=== PATIENT | male | born 1930 | race Caucasian/White ===

== ENCOUNTER 2017-05-02 07:00 | Day surgery (SDC) | payer OTHER ==
[~2017-05-02] VITALS: Ht 172.7 cm; Wt 82.1 kg
--- NOTE | ~2017-05-02 | EKG ---
[place] [address] [email or web address] [place] [address] ELECTROCARDIOGRAM REPORT Name: RANDY MESA Room #: [facility]#: [id number] Admission: 05/02/17 Attend Phys: Girish Sterling MD, F Discharge: 05/02/17 Date of : [birth year] Report #: [id number] THIS REPORT FOR: //name// [facility] Test Date: 2017-05-02 Test Time: 10:17:07 Pat Name: RANDY MOSHE Department: Room: 150 7 Gender: M [employer] Plant Operator: YOESLIN : 1930 Requested By: Girish Sterling Order Number: [id number] MD: Dallin Hall Measurements Intervals [place] Rate: 98 P: [place]: QRS: -58 QRSD: 126 T: 133 QT: 420 QTc: 537 Interpretive Statements Atrial fibrillation Multiple ventricular premature complexes Right bundle branch block Anterior infarct, old Abnormal T, consider ischemia, lateral leads No previous ECG available for comparison Electronically Signed On 05-02-2017 21:58:46 CDT by Dallin Hall [email or web address] <ELECTRONICALLY SIGNED> By: Dallin Hall MD 05/02/17 [id number] Dallin Hall MD /EPI
--- NOTE | ~2017-05-02 | O ---
[facility] [place] [address] OPERATIVE REPORT Name: MOSHE,RANDY Alicia Room #: [facility]#: [id number] Admission: 05/02/17 Attend Phys: Girish Sterling MD, F Discharge: 05/02/17 Date of : [birth year] Report #: [id number] THIS REPORT FOR: //name// CC: Mesha Sterling DATE OF SERVICE: 05/02/2017 DATE OF OPERATION: 05/02/2017 SURGEON: Girish Sterling MD WET PRESS TENDER: None. PREOPERATIVE DIAGNOSES: 1. Urethral meatus wound. 2. Calciphylaxis. 3. 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 4. Nutrition. POSTOPERATIVE DIAGNOSES: 1. Urethral meatus wound. 2. Calciphylaxis. 3. 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 4. Nutrition. PROCEDURE: 1. Removal of peritoneal dialysis catheter. 2. Esophagogastroduodenoscopy with percutaneous endoscopic gastrostomy tube placement (20-Norwegian pull-type). ANESTHESIA: Monitored anesthetic care and local anesthetic. ESTIMATED BLOOD LOSS: 5 mL. SPECIMEN: None. COMPLICATIONS: None appreciated. INDICATIONS FOR PROCEDURE: This is an 87-year-old male patient with a history of end-stage renal disease who has difficulty with calciphylaxis. He developed a wound at the urethral meatus after a Miranda catheter had been in place for quite some time. The patient was to undergo peritoneal dialysis; however, he is now undergoing hemodialysis, although he does make urine. Due to his poor p.o. [facility] [address] [place] [address] OPERATIVE REPORT Name: RANDY MESA Room #: [facility] [employer].#: [id number] Admission: 05/02/17 Attend Phys: Girish Sterling MD, F Discharge: 05/02/17 Date of : [birth year] Report #: [id number] intake and malnutrition, he was having a difficult time healing his wounds, especially with his history of calciphylaxis. The patient presents today for removal of this is no longer needed peritoneal dialysis catheter as well as percutaneous endoscopic gastrostomy placement. He was to undergo suprapubic catheter placement by urology; however, they are unavailable at this time and the patient will undergo placement of his suprapubic catheter by Interventional Radiology during this hospital visit. DESCRIPTION OF PROCEDURE IN DETAIL: After the benefits and risks of the procedure were explained to the patient and his family, which include but are not limited to risks of bleeding, infection, postoperative pain, postoperative expectations for both procedures, informed consent was obtained. The patient was identified in preoperative holding area. He was given IV antibiotics as documented in the chart in line with the SCIP protocol. The patient was then taken to the operating room and he was placed in the supine position. SCDs were placed on the patient's bilateral lower extremities and pneumatic compression was initiated. The patient was then given IV sedation. He received monitored anesthetic care. When adequately sedated, the patient's abdomen was prepped and draped in the standard sterile fashion. A time-out was performed to identify the correct patient and procedure. Removal of peritoneal dialysis catheter was undertaken first. Local anesthetic was infiltrated into the skin and subcutaneous tissue along the tract surrounding the peritoneal dialysis catheter located in the left lower quadrant of the abdomen. The scar used for placement of the catheter intraabdominally, was also infiltrated with local anesthetic. I initially attempted to spread alongside the catheter starting at its exit point from the skin. With gentle traction on the catheter, the cuff could be palpated, but was not able to reach. A sharp #15 blade scalpel was then used to make an incision through the old scar. Dissection was carried down to the catheter. The catheter was bluntly and sharply dissected free. The inner cuff at the fascial level was then dissected free with appropriate traction and electrocautery. The catheter was then freed from the surrounding tissue and removed without difficulty. A [id number] PDS sutures were then placed to close the fascial defect. Interrupted 3-0 Vicryl sutures were used to approximate the subdermal tissue and a running 4-0 absorbable Stratafix suture was used to close the skin incision. The tube exit site was also debrided and closed with a running 4-0 Monocryl subcuticular suture. Dermabond was applied to each suture line. OPERATIVE FINDINGS: EGD with PEG tube placement was undertaken next. A bite block was placed by Anesthesia. The gastroscope was inserted into the patient's oropharynx and passed down the esophagus into the stomach and beyond the pylorus to the third portion of the duodenum. The scope was then slowly withdrawn. An appropriate area was chosen for placement of the PEG tube. There was good ballotability and transillumination in this area located in the left subxiphoid area. Local anesthetic was infiltrated into the skin and subcutaneous tissue. [facility] [address] [place] [address] OPERATIVE REPORT Name: RANDY MESA [id number] Admission: 05/02/17 Attend Phys: Girish Sterling MD, F Discharge: 05/02/17 Date of : [birth year] Report #: [id number] A small transverse incision was made and the Angiocatheter was advanced into the stomach under direct visualization. The needle was removed and looped typed guidewire was advanced through the catheter. The guidewire was snared with the scope and the scope and guidewire were withdrawn through the oropharynx. The pull type 20-Norwegian feeding tube was then attached to the guidewire. From the abdominal side, gentle traction was applied to the guidewire to advance the PEG tube down the patient's esophagus and into the stomach. The tube was marked at 3.5 cm at the skin level. The outer flange was placed. The tube was cut to size. A clamp and fitting were then placed. The scope was readvanced into the patient's stomach and the PEG tube appeared to be well seated. The stomach was decompressed and the scope was slowly withdrawn. The patient tolerated the procedure well. He was awakened and was taken to the recovery room in stable condition. He will undergo suprapubic catheter placement by Interventional Radiology soon. <ELECTRONICALLY SIGNED> By: Girish Sterling MD, FACS 05/03/17 0811 [id number] Girish Sterling MD, FACS /nt
[~2017-05-02 07:00] MED LIST: ACCUNEB SO1.25 MG/1 INH; ALLOPURINOL 10100 M1 PO; ARANESP 6060 MCG/0.3 SUBQ; ATIVAN0.5 MG PO; ATORVASTATIN CA40 MG PO; B-COMPLEX PLUS1 EACH PO; COLACE100 MG PO; COREG3.125 MG PO; CYPROHEPTADINE 44 MG PO; ELIQUIS2.5 MG PER TUBE; ENSURE HIGH PR237 ML PO; FENTANYL PA25 MCG/HR TRANSDERM; GLIMEPIRIDE4 MG PO; HALOPERIDOL5 MG/1 M1 IV PUSH; HEPARIN SO5000 UNIT2 IV PUSH; LANTISEPTIC OI113 GM TOP; LEVEMIR100 UNIT/1 SUBQ; METOCLOPRAM5 MG/1 M2 IV PUSH; MIRALAX17 GM PO; NOVOLOG100 UNIT/1 SUBQ; ONDANSETRON4 MG/2 ML IV PUSH; PANTOPRAZOLE SO40 M1 PO; PROTEIN POWDER454 GM PO; RENVELA800 MG PO; SILVADENE20 GM TOP; SODIUM THI12.5 GM/50 IV; TRAMADOL HCL50 MG PO
[2017-05-02 10:26] LABS: HEMATOCRIT 24.6 % (42.0-52.0)
[2017-05-02 11:35] VITALS: BP 116/66
[2017-05-02 15:03] VITALS: BP 116/66
[2017-05-02 16:51] VITALS: BP 116/66
== END 2017-05-02 17:30 | disposition home or self-care (01) ==
LOC: OR 07:00 → TBA 07:01 → OR 12:29
PROVIDERS: Surgery
DX: E11.22 Type 2 diabetes mellitus with diabetic chronic kidney disease (principal); N18.6 End stage renal disease; I12.0 Hypertensive chronic kidney disease with stage 5 chronic kidney disease or end stage renal disease; N17.9 Acute kidney failure, unspecified; Z99.2 Dependence on renal dialysis; T85.71XA Infection and inflammatory reaction due to peritoneal dialysis catheter, initial encounter; E83.59 Other disorders of calcium metabolism; I25.10 Atherosclerotic heart disease of native coronary artery without angina pectoris; E78.00 Pure hypercholesterolemia, unspecified; I48.91 Unspecified atrial fibrillation; M19.90 Unspecified osteoarthritis, unspecified site; D64.9 Anemia, unspecified; M10.9 Gout, unspecified; Z95.1 Presence of aortocoronary bypass graft
CPT/HCPCS: 50010; 50101; 50386; 50403; 53325; 54118; 56524; 56526; 62110; 62850; 70005